=== PATIENT | male | born 1955 | race Caucasian/White ===

== ENCOUNTER 2022-04-09 19:36 | Outpatient (CLI) | payer MEDICARE, BC, SELFPAY ==
--- OUTSIDE RECORDS SUMMARY | 2022-04-09 19:39 | XMS_ITS | Continuity of Care Document ---
:1955 Author Organization [facility] Address [address] [address] [place] [address] Phone Care Team Providers Name Role Phone Link Claudy BLUM Unavailable Unavailable Allergies, Adverse Reactions, Alerts Substance Reaction Status Criticality No Known allergies Medications Medication Instructions Dosage Effective Dates Status Comment s (start - stop) MiralaxBisacodylMagCit Colon Use as directed - Active Prep simvastatin 20 mg tablet take 1 tablet 20 MG - Activ e (20MG) by oral route every day in the evening lisinopril 10 mg tablet take 1 tablet 10 MG - Active (10MG) by oral route every day prednisone 5 mg tablet take 1 tablet 5 MG - Active (5MG) by oral route every day aspirin 81 mg tablet,delayed take 1 tablet 81 MG - A ctive release (81MG) by oral route every day Procedures Procedure Date Colonoscopy Flex; W/remov Les- Colonoscopy Flex; W/bx 1/mx Level Iv-surg Path Gross/micro Advance Directives Directive Yes / No Effective Date File Name No Information Encounters Encounter Practice Location Reason(s) Diagnoses Date Provider Provide rs Description For Visit Copied on [facility]counter [facility] No Information [facility] [address]. [place] [employer] [place], [address] [address], [address] [facility] [place], [place], [place], [address], [id number], [place], [place], tel:[phone] , [place]. tel:[phone] KJMARTI Conde KJMARTI Polyp-intes/rect/ [facility] MD [place]. [facility], [facility] [address] [address] [place] [facility] [place], [place], [place] [facility] [address], [id number], [place], [place], tel: ulosis Of [phone] [id number] [place] [address]. [facility] tel: [phone] Family History Family Member Type Diagnosis Age At Onset No Information Payers Payer name Insurance type Covered alliance party ID Authorization(s ) No Information Social History Type Description Quantity Date Captured Comments Sex Male Smoking Status No Information Chief Complaint And Reason For Visit No Information Reason For Referral Reason For Referral No Information Plan Of Treatment Date Type Action Status No Information History Of Present Illness Encounter Date Complaint History Of Present I llness No Information Functional Status Date Functional Assessment No Information Instructions Date Instruction Additional Informati on No Information Assessments Type Assessment Date No Information Patient Care Teams Name Effective Dates (start - stop) Status M embtanya No Information
--- NOTE | 2022-04-30 13:46 | W.PM.SLEEP ---
Sleep Study Details Details Interpreting Provider: Virgil Mccann MD Date of Sleep Study: 04/09/22 Sleep Study Details: STUDY TYPE:? Home ? BMI:? Not recorded ORDERING PROVIDER:? Ger INDICATION:? Concerns about sleep apnea ? SLEEP SUMMARY:? 411 monitored minutes RESPIRATORY SUMMARY:? AHI 18.4, supine 29.8, prone 12.2, left lateral 9.1, right lateral 4.6 Low oxygen 82 3.4% of study oxygen less than 90%, 0.1% of study oxygen less than 85% Snoring 1.1% PERIODIC LIMB MOVEMENTS OF SLEEP:? Not recorded CARDIAC:? 50-87, mean 58.8 IMPRESSION:? 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
== END 2022-04-09 19:37 | disposition home or self-care (01) ==
LOC: SLEEP 19:37
PROVIDERS: PCP Emergency Medicine; Visit Provider Emergency Medicine
DX: G47.33 Obstructive sleep apnea (adult) (pediatric) (principal)
CPT/HCPCS: 95806

== ENCOUNTER 2022-07-24 14:36 | Outpatient (CLI) | payer MEDICARE, BC, SELFPAY | END 2022-07-24 14:37 | disposition home or self-care (01) | PROVIDERS: PCP Emergency Medicine; Visit Provider Emergency Medicine | DX: R05.9 Cough, unspecified (principal); R05.3 Chronic cough | CPT/HCPCS: 86140; 86480 ==

== ENCOUNTER 2022-07-31 09:49 | Outpatient (CLI) | payer MEDICARE, BC, SELFPAY ==
--- NOTE | 2022-07-31 10:00 | CRLHL7_ITS ---
For Patients: As a result of the Century Cures Act, medical imaging exams and procedure reports are released immediately into your electronic medical record. You may view this report before your referring provider. If you have questions, please contact your health care provider. Indication: Chronic cough greater than 1 year Technique: Routine noncontrast CT chest Please note that all CT scans at this facility use dose modulation, iterative reconstruction, and/or weight-based dosing when appropriate to reduce radiation dose to as low as reasonably achievable. Comparison: Chest x-ray 02/04/2022 Findings: Pleural-based nodule right upper lobe measuring 4 millimeters, . Perifissural nodule left lower lobe measuring 3.6 millimeters, . No infiltrate or edema. No effusion or pneumothorax. Mild atelectasis right lung base. No pulmonary fibrosis. No adenopathy. Calcifications of the coronary arteries. Upper abdomen unremarkable. No fracture. Impression: No airspace disease or pulmonary fibrosis. Small bilateral pulmonary nodules. If the patient is a smoker recommend follow-up in 1 year. Please note that all CT scans at this facility use dose modulation, iterative reconstruction, and/or weight-based dosing when appropriate to reduce radiation dose to as low as reasonably achievable. Dictated by Markus Serna MD @ 07/31/2022 11:50:30 AM (Electronically Signed)
== END 2022-07-31 09:50 | disposition home or self-care (01) ==
PROVIDERS: PCP Emergency Medicine; Visit Provider Emergency Medicine
DX: R05.3 Chronic cough (principal); R91.8 Other nonspecific abnormal finding of lung field
CPT/HCPCS: 71250

== ENCOUNTER 2023-01-08 12:30 | Outpatient (CLI) | payer MEDICARE, BC, SELFPAY | END 2023-01-08 12:31 | disposition home or self-care (01) | LOC: LKVREF 12:31 | PROVIDERS: PCP Emergency Medicine; Visit Provider Emergency Medicine | DX: Z00.00 Encounter for general adult medical examination without abnormal findings (principal); E78.5 Hyperlipidemia, unspecified; I10 Essential (primary) hypertension; Z12.5 Encounter for screening for malignant neoplasm of prostate | CPT/HCPCS: 80053; 80061; 84153 ==

== ENCOUNTER 2024-03-03 09:26 | Outpatient (CLI) | payer MEDICARE, BC, SELFPAY ==
--- OUTSIDE RECORDS SUMMARY | 2024-03-06 10:24 | XMS_ITS | Continuity of Care Document ---
Author Name [facility] Organization [facility] Care Team Providers Care Quality Project Manager Name Role Phone [facility] Unavailable Unavailable Problems Combined list of problems from Department of Defense and Veterans Affairs facilities. It does not include entries that were removed or entered in error. Problem Status Onset Date Problem Type Date of Resolution Comments Source Chronic cough Active Condition [facility] Colonoscopy normal Active Condition S ep 2018 Entered By: GREGORY JERONIMO Comment: 2017 [facility] GERD - Gastro-Esophageal Reflux Disease ([facility] [id number]) Active Condition [facility] Hearing loss Active Condition [facility] HTN - Hypertension ([facility] [id number]) Active Condition [facility] Hypercalcemia Active Condition [facility] Hyperlipidemia ([facility] [id number]) Active Condition [facility] Osteopenia Active Condition Jan 21 Entered By: GREGORY JERONIMO Comment: 2018 DEXA [facility] Overweight Active Condition [facility] Primary hyperparathyroidism Active Condition [facility] Sleep apnea Active Condition Jul 19, 2022 Entered By: GREGORY JERONIMO Comment: moderate obstructive sleep apnea [place] [facility] [place] Entered By: YARITZA ESCUDERO Comment: Neg sleep study at [place] 12-23 [facility] Snoring Active Condition [facility] SR - Schatzki ring Active Condition S ep 2018 Entered By: GREGORY JERONIMO Comment: Hx episodic EGD dilatations [facility] Diagnosis: ICD-10-CM H90.3 Sensorineural hearing loss, bilateral Active Diagnosis [facility] Diagnosis: ICD-10-CM E78.5 Hyperlipidemia, unspecified Active Diagnosis [facility] Diagnosis: ICD-10-CM R05.3 Chronic cough Active Diagnosis [facility] Diagnosis: ICD-10-CM G47.33 Obstructive sleep apnea (adult) (pediatric) Active Diagnosis [facility] Diagnosis: ICD-10-CM R06.83 Snoring Active Diagnosis [facility] Diagnosis: ICD-10-CM Z46.1 Encounter for fitting and adjustment of hearing aid Active Diagnosis [facility] Medications Combined list of outpatient medications from Department of Defense and Veterans Affairs facilities.Medications provided include 1) outpatient medications from the last 15 months, and 2) patient-reported medications. Medication Details Route Status Patient Instructions Prescription Expires Prescription Number Last Dispense Date Ordering Provider Order Date Order Qty Source AMLODIPINE BESYLATE 2.5MG TAB TAKE ONE TABLET BY MOUTH EVERY DAY FOR BLOOD PRESSURE ORAL ACTIVE 02/01/2025 [id number] STEPHANIE JERONIMO 2023 90 [facility] atorvastati n (U/D) 40 MG ORAL TAB TAKE ONE TABLET BY MOUTH AT BEDTIME - CHOLESTE ROL MEDICATI ON Active 03/23/2024 [id number] 4 YARITZA ESCUDERO [address] [facility] atorvastati n (U/D) 40 MG ORAL TAB TAKE ONE TABLET BY MOUTH AT BEDTIME - CHOLESTE ROL MEDICATI ON Active 03/23/2024 [id number] 3 YARITZA ESCUDERO [address] [facility] atorvastati n (U/D) 40 MG ORAL TAB TAKE ONE TABLET BY MOUTH AT BEDTIME - CHOLESTE ROL MEDICATI ON Discont inued 02/26/2023 [id number] 3 STEPHANIE JERONIMO [address] [facility] ATORVASTATI N CA 40MG TAB TAKE ONE TABLET BY MOUTH AT BEDTIME - CHOLESTE ROL MEDICATI ON ORAL SUSPEND ED 02/01/2025 [id number] 4 STEPHANIE JERONIMO 2023 90 [facility] ATORVASTATI N CA 40MG TAB TAKE ONE TABLET BY MOUTH AT BEDTIME - CHOLESTE ROL MEDICATI ON ORAL DISCONT INUED 03/23/2024 [id number] 4 ERIN ESCUDERO 2022 90 [facility] ATORVASTATI N CA 40MG TAB TAKE ONE TABLET BY MOUTH AT BEDTIME - CHOLESTE ROL MEDICATI ON ORAL DISCONT INUED 02/26/2023 [id number] 3 STEPHANIE JERONIMO 2021 90 [facility] losartan (U/D) 25 MG ORAL TAB TAKE ONE TABLET BY MOUTH EVERY DAY FOR BLOOD PRESSURE Active 03/23/2024 [id number] 4 YARITZA ESCUDERO [address] [facility] losartan (U/D) 25 MG ORAL TAB TAKE ONE TABLET BY MOUTH EVERY DAY FOR BLOOD PRESSURE Active 03/23/2024 [id number] 3 YARITZA ESCUDERO [address] [facility] losartan (U/D) 25 MG ORAL TAB TAKE ONE TABLET BY MOUTH EVERY DAY FOR BLOOD PRESSURE Discont inued 02/26/2023 [id number] 3 STEPHANIE JERONIMO [address] [facility] LOSARTAN 25MG TAB TAKE ONE TABLET BY MOUTH EVERY DAY FOR BLOOD PRESSURE ORAL DISCONT INUED BY PROVIDE R 03/23/2024 [id number] 4 ERIN ESCUDERO 2022 90 [facility] LOSARTAN 25MG TAB TAKE ONE TABLET BY MOUTH EVERY DAY FOR BLOOD PRESSURE ORAL DISCONT INUED 02/26/2023 [id number] 3 STEPHANIE JERONIMO 2021 90 [facility] MOMETASONE FUROATE 100MCG/ACTU AT [facility],ORAL,1 20D,13GM INHALE 1 PUFF BY MOUTH TWICE A DAY FOR ASTHMA RESPIR ATORY (INHAL ATION) ACTIVE 02/01/2025 [id number] 4 STEPHANIE JERONIMO 2023 1 [facility] Prednisone (5-Day Burst) Tablet 20 mg Oral TAKE ONE TABLET BY MOUTH EVERY DAY NEEDED FOR 5 DAYS FOR EPISODES WHEEZING /SHORTNE SS OF BREATH/C ONGESTIO N Active 08/26/2024 [id number] 4 YARITZA ESCUDERO [address] [facility] Prednisone (5-Day Burst) Tablet 20 mg Oral TAKE ONE TABLET BY MOUTH EVERY DAY NEEDED FOR 5 DAYS FOR EPISODES WHEEZING /SHORTNE SS OF BREATH/C ONGESTIO N Active 08/26/2024 [id number] 4 YARITZA ESCUDERO 2023 5 [facility] Prednisone (5-Day Burst) Tablet 20 mg Oral TAKE ONE TABLET BY MOUTH EVERY DAY NEEDED FOR 5 DAYS FOR EPISODES WHEEZING /SHORTNE SS OF BREATH/C ONGESTIO N Discont inued 03/23/2024 [id number] 4 YARITZA ESCUDERO A 2023 5 [place] [facility] Prednisone (5-Day Burst) Tablet 20 mg Oral TAKE ONE TABLET BY MOUTH EVERY DAY NEEDED FOR 5 DAYS FOR EPISODES WHEEZING /SHORTNE SS OF BREATH/C ONGESTIO N Active 03/23/2024 [id number] 3 YARITZA ESCUDERO 2022 5 [place] [facility] Prednisone (5-Day Burst) Tablet 20 mg Oral TAKE ONE TABLET BY MOUTH EVERY DAY NEEDED FOR 5 DAYS FOR EPISODES WHEEZING /SHORTNE SS OF BREATH/C ONGESTIO N Discont inued 12/05/2023 [id number] 3 NICOLE CROWDER 2022 5 [place] [facility] PREDNISONE 20MG TAB TAKE ONE TABLET BY MOUTH EVERY DAY NEEDED FOR 5 DAYS FOR EPISODES WHEEZING /SHORTNE SS OF BREATH/C ONGESTIO N ORAL ACTIVE 02/01/2025 [id number] 4 STEPHANIE JERONIMO 2023 5 [facility] PREDNISONE 20MG TAB TAKE ONE TABLET BY MOUTH EVERY DAY NEEDED FOR 5 DAYS FOR EPISODES WHEEZING /SHORTNE SS OF BREATH/C ONGESTIO N ORAL DISCONT INUED 11/13/2024 [id number] 4 STEPHANIE JERONIMO 2023 5 [facility] PREDNISONE 20MG TAB TAKE ONE TABLET BY MOUTH EVERY DAY NEEDED FOR 5 DAYS FOR EPISODES WHEEZING /SHORTNE SS OF BREATH/C ONGESTIO N ORAL DISCONT INUED 08/26/2024 [id number] 4 ERIN ESCUDERO 2023 5 [facility] PREDNISONE 20MG TAB TAKE ONE TABLET BY MOUTH EVERY DAY NEEDED FOR 5 DAYS FOR EPISODES WHEEZING /SHORTNE SS OF BREATH/C ONGESTIO N ORAL DISCONT INUED 03/23/2024 [id number] 4 ERIN ESCUDERO A 2022 5 [facility] PREDNISONE 20MG TAB TAKE ONE TABLET BY MOUTH EVERY DAY NEEDED FOR 5 DAYS FOR EPISODES WHEEZING /SHORTNE SS OF BREATH/C ONGESTIO N ORAL DISCONT INUED 12/05/2023 [id number] 3 STEPHANIE JERONIMO 2022 5 [facility] Allergies, Adverse Reactions, Alerts Combined list of allergies from Department of Defense and Veterans Affairs facilities. It does not include entries that were removed or entered in error. Substance Category Reaction Severity Reaction type Status Date Reported Comments Source LISINOPRIL Propensity to adverse reactions to drug (finding) Cough MODERATE active 4 [facility] Immunizations Combined list of available immunizations from the Department of [facility] and Veterans Affairs facilities. 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 Status Comments Source COVID-19 ([employer]), MRNA, LNP-S, PF, SAIDA-SUCROSE, 30 MCG/0.3 ML (AGES 12+ YEARS) 2023 309 complet ed [facility] INFLUENZA, ADJUVANTED, TRIVALENT, PF 2023 168 complet ed [facility] COVID-19 (PFIZER), MRNA, LNP-S, PF, SAIDA-SUCROSE, 30 MCG/0.3 ML (AGES 12+ YEARS) 2022 309 complet ed [facility] INFLUENZA VACCINE, QUADRIVALENT, ADJUVANTED 2022 205 complet ed [facility] INFLUENZA VACCINE, QUADRIVALENT, ADJUVANTED 2021 205 complet ed [facility] COVID-19, MRNA, LNP-S, BIVALENT BOOSTER, PF, 30 MCG/0.3 ML DOSE 1 2021 300 complet ed PFR; [id number]; 3 [facility] COVID-19 (PFIZER), MRNA, LNP-S, PF, SAIDA-SUCROSE, 30 MCG/0.3 ML (AGES 12+ YEARS) 2021 309 complet ed [facility] COVID-19 ([employer]), MRNA, LNP-S, PF, 30 MCG/0.3 ML DOSE, SAIDA-SUCROSE (AGES 12+ YEARS) 4 2021 217 complet ed PFR; [id number]; 2 [facility] PNEUMOCOCCAL CONJUGATE PCV 13 2021 133 complet ed [facility] INFLUENZA, UNSPECIFIED FORMULATION 2020 88 complet ed [facility] COVID-19 (PFIZER), MRNA, LNP-S, PF, 30 MCG/0.3 ML DOSE 3 2020 208 complet ed [facility] INFLUENZA, HIGH-DOSE, QUADRIVALENT 2020 197 complet ed [facility] COVID-19 (PFIZER), MRNA, LNP-S, PF, 30 MCG/0.3 ML DOSE 2 2020 208 complet ed PFR; [id number]; 1 [facility] COVID-19 (PFIZER), MRNA, LNP-S, PF, SAIDA-SUCROSE, 30 MCG/0.3 ML (AGES 12+ YEARS) 2020 309 complet ed [facility] COVID-19 (PFIZER), MRNA, LNP-S, PF, 30 MCG/0.3 ML DOSE 1 2020 208 complet ed PFR; [id number]; 1 [facility] COVID-19 (PFIZER), MRNA, LNP-S, PF, SAIDA-SUCROSE, 30 MCG/0.3 ML (AGES 12+ YEARS) 2020 309 complet ed [facility] PNEUMOCOCCAL POLYSACCHARID E PPV23 2020 33 complet ed merck [id number] 2 [facility] ZOSTER RECOMBINANT 2 2020 187 complet ed [facility] ZOSTER RECOMBINANT 1 2019 187 complet ed [facility] INFLUENZA, UNSPECIFIED FORMULATION 2019 88 complet ed [facility] PNEUMOCOCCAL CONJUGATE PCV 13 2019 133 complet ed [facility] PNEUMOCOCCAL CONJUGATE PCV 13 2018 133 complet ed [facility] TDAP 2018 115 complet ed [facility] INFLUENZA, INJECTABLE, QUADRIVALENT, PRESERVATIVE FREE 2017 150 complet ed [facility] TDAP 2015 115 complet ed [facility] ZOSTER LIVE 2015 121 complet ed [facility] Results Combined list of recent chemistry, hematology and other laboratory results from Department of Defense and Veterans Affairs, ranging from 15 months to all on record, depending upon the facility. Order Name Results Value Reference Range Date Interpretation Specimen Comments Source CBC LEUKOCYTES [#/VOLUME] IN BLOOD BY AUTOMATED COUNT 5.3 4.0 - 11.0 01/31 Specimen Type: BLOOD No comment entered. Ordering Provider: JUDY JERONIMO Report Released Date/Time: Jan 04, 2024 12:48 PM Reporting Lab: [facility] [address] Performing Lab: [facility] [address] [facility] CBC ERYTHROCYTE S [#/VOLUME] IN BLOOD BY AUTOMATED COUNT 4.87 4.60 - 6.20 01/31 Specimen Type: BLOOD No comment entered. Ordering Provider: JUDY JERONIMO Report Released Date/Time: Jan 04, 2024 12:48 PM Reporting Lab: [facility] [address] Performing Lab: [facility] [address] [facility] CBC HEMOGLOBIN [MASS/VOLUM E] IN BLOOD 14.9 g/dL 13.5 - 17.9 01/31 Specimen Type: BLOOD No comment entered. Ordering Provider: JUDY JERONIMO Report Released Date/Time: Jan 04, 2024 12:48 PM Reporting Lab: [facility] [address] Performing Lab: [facility] [address] [facility] CBC HEMATOCRIT [VOLUME FRACTION] OF BLOOD BY AUTOMATED COUNT 44.2 41.0 - 54.0 01/31 Specimen Type: BLOOD No comment entered. Ordering Provider: JUDY JERONIMO Report Released Date/Time: Jan 04, 2024 12:48 PM Reporting Lab: [facility] [address] Performing Lab: [facility] [address] [place] [facility] CBC MCV [ENTITIC VOLUME] BY AUTOMATED COUNT 90.8 fL 80.0 - 100.0 01/31 Specimen Type: BLOOD No comment entered. Ordering Provider: JUDY JERONIMO Report Released Date/Time: Jan 04, 2024 12:48 PM Reporting Lab: [facility] [address] Performing Lab: [facility] [address] [place] [facility] CBC MCH [ENTITIC MASS] BY AUTOMATED COUNT 30.6 pg 27.0 - 33.0 01/31 Specimen Type: BLOOD No comment entered. Ordering Provider: JUDY JERONIMO Report Released Date/Time: Jan 04, 2024 12:48 PM Reporting Lab: [facility] [address] Performing Lab: [facility] [address] [place] [facility] CBC MCHC [MASS/VOLUM E] BY AUTOMATED COUNT 33.7 g/dL 32.0 - 37.5 01/31 Specimen Type: BLOOD No comment entered. Ordering Provider: JUDY JERONIMO Report Released Date/Time: Jan 04, 2024 12:48 PM Reporting Lab: [facility] [address] Performing Lab: [facility] [address] [place] [facility] CBC PLATELETS [#/VOLUME] IN BLOOD BY AUTOMATED COUNT 228 150 - 400 01/31 Specimen Type: BLOOD No comment entered. Ordering Provider: JUDY JERONIMO Report Released Date/Time: Jan 04, 2024 12:48 PM Reporting Lab: [facility] [address] Performing Lab: [facility] [address] [place] [facility] CBC PLATELET MEAN VOLUME [ENTITIC VOLUME] IN BLOOD BY AUTOMATED COUNT 10.5 fL 9.1 - 13.0 01/31 Specimen Type: BLOOD No comment entered. Ordering Provider: JUDY JERONIMO Report Released Date/Time: Jan 04, 2024 12:48 PM Reporting Lab: [facility] [address] Performing Lab: [facility] [address] [place] [facility] CBC ERYTHROCYTE DISTRIBUTIO N WIDTH [RATIO] BY AUTOMATED COUNT 14.2 11.5 - 14.5 01/31 Specimen Type: BLOOD No comment entered. Ordering Provider: JUDY JERONIMO Report Released Date/Time: Jan 04, 2024 12:48 PM Reporting Lab: [facility] [address] Performing Lab: [facility] [address] [place] [facility] COMPREHEN SIVE METABOLIC PANEL+MG CREATININE [MASS/VOLUM E] IN SERUM OR PLASMA 1.0 mg/dL 0.7 - 1.2 01/31 Specimen Type: PLASMA No comment entered. Ordering Provider: JUDY JERONIMO Report Released Date/Time: Jan 04, 2024 12:48 PM Reporting Lab: [facility] [address] Performing Lab: [facility] [address] [place] [facility] COMPREHEN SIVE METABOLIC PANEL+MG UREA NITROGEN [MASS/VOLUM E] IN SERUM OR PLASMA 19 mg/dL 8 - 26 01/31 Specimen Type: PLASMA No comment entered. Ordering Provider: JUDY JERONIMO Report Released Date/Time: Jan 04, 2024 12:48 PM Reporting Lab: [facility] [address] Performing Lab: [facility] [address] [place] [facility] COMPREHEN SIVE METABOLIC PANEL+MG GLUCOSE [MASS/VOLUM E] IN SERUM OR PLASMA 91 mg/dL 70 - 100 01/31 Specimen Type: PLASMA No comment entered. Ordering Provider: JUDY JERONIMO Report Released Date/Time: Jan 04, 2024 12:48 PM Reporting Lab: [facility] [address] Performing Lab: [facility] [address] [place] [facility] COMPREHEN SIVE METABOLIC PANEL+MG SODIUM [MOLES/VOLU ME] IN SERUM OR PLASMA 141 mmol/L 136 - 145 01/31 Specimen Type: PLASMA No comment entered. Ordering Provider: JUDY JERONIMO Report Released Date/Time: Jan 04, 2024 12:48 PM Reporting Lab: [facility] [address] Performing Lab: [facility] [address] [place] [facility] COMPREHEN SIVE METABOLIC PANEL+MG POTASSIUM [MOLES/VOLU ME] IN SERUM OR PLASMA 3.9 mmol/L 3.5 - 5.1 01/31 Specimen Type: PLASMA No comment entered. Ordering Provider: JUDY JERONIMO Report Released Date/Time: Jan 04, 2024 12:48 PM Reporting Lab: [facility] [address] Performing Lab: [facility] [address] [place] [facility] COMPREHEN SIVE METABOLIC PANEL+MG CHLORIDE [MOLES/VOLU ME] IN SERUM OR PLASMA 107 mmol/L 98 - 107 01/31 Specimen Type: PLASMA No comment entered. Ordering Provider: JUDY JERONIMO Report Released Date/Time: Jan 04, 2024 12:48 PM Reporting Lab: [facility] [address] Performing Lab: [facility] [address] [place] [facility] COMPREHEN SIVE METABOLIC PANEL+MG CARBON DIOXIDE, TOTAL [MOLES/VOLU ME] IN SERUM OR PLASMA 30 mmol/L 22 - 29 01/31 H Specimen Type: PLASMA No comment entered. Ordering Provider: JUDY JERONIMO Report Released Date/Time: Jan 04, 2024 12:48 PM Reporting Lab: [facility] [address] Performing Lab: [facility] [address] [place] [facility] COMPREHEN SIVE METABOLIC PANEL+MG CALCIUM [MASS/VOLUM E] IN SERUM OR PLASMA 8.9 mg/dL 8.4 - 10.2 01/31 Specimen Type: PLASMA No comment entered. Ordering Provider: JUDY JERONIMO Report Released Date/Time: Jan 04, 2024 12:48 PM Reporting Lab: [facility] [address] Performing Lab: [facility] [address] [place] [facility] COMPREHEN SIVE METABOLIC PANEL+MG PROTEIN [MASS/VOLUM E] IN SERUM OR PLASMA 6.4 g/dL 6.4 - 8.3 01/31 Specimen Type: PLASMA No comment entered. Ordering Provider: JUDY JERONIMO Report Released Date/Time: Jan 04, 2024 12:48 PM Reporting Lab: [facility] [address] Performing Lab: [facility] [address] [place] [facility] COMPREHEN SIVE METABOLIC PANEL+MG ALBUMIN [MASS/VOLUM E] IN SERUM OR PLASMA 4.1 g/dL 3.5 - 5.2 01/31 Specimen Type: PLASMA No comment entered. Ordering Provider: JUDY JERONIMO Report Released Date/Time: Jan 04, 2024 12:48 PM Reporting Lab: [facility] [address] Performing Lab: [facility] [address] [facility] COMPREHEN SIVE METABOLIC PANEL+MG BILIRUBIN.T OTAL [MASS/VOLUM E] IN SERUM OR PLASMA 1.2 mg/dL 0.2 - 1.2 01/31 Specimen Type: PLASMA No comment entered. Ordering Provider: JUDY JERONIMO Report Released Date/Time: Jan 04, 2024 12:48 PM Reporting Lab: [facility] [address] Performing Lab: [facility] [address] [facility] COMPREHEN SIVE METABOLIC PANEL+MG MAGNESIUM [MASS/VOLUM E] IN SERUM OR PLASMA 2.1 mg/dL 1.6 - 2.6 01/31 Specimen Type: PLASMA No comment entered. Ordering Provider: JUDY JERONIMO Report Released Date/Time: Jan 04, 2024 12:48 PM Reporting Lab: [facility] [address] Performing Lab: [facility] [address] [place] [facility] COMPREHEN SIVE METABOLIC PANEL+MG ANION GAP IN SERUM OR PLASMA 4 mmol/L 5 - 15 01/31 L Specimen Type: PLASMA No comment entered. Ordering Provider: JUDY JERONIMO Report Released Date/Time: Jan 04, 2024 12:48 PM Reporting Lab: [facility] [address] Performing Lab: [facility] [address] [place] [facility] COMPREHEN SIVE METABOLIC PANEL+MG ALKALINE PHOSPHATASE [ENZYMATIC ACTIVITY/VO LUME] IN SERUM OR PLASMA 65 U/L 40 - 150 01/31 Specimen Type: PLASMA No comment entered. Ordering Provider: JUDY JERONIMO Report Released Date/Time: Jan 04, 2024 12:48 PM Reporting Lab: [facility] [address] Performing Lab: [facility] [address] [place] [facility] COMPREHEN SIVE METABOLIC PANEL+MG ALANINE AMINOTRANSF ERASE [ENZYMATIC ACTIVITY/VO LUME] IN SERUM OR PLASMA 20 U/L <44 - 44 01/31 Specimen Type: PLASMA No comment entered. Ordering Provider: JUDY JERONIMO Report Released Date/Time: Jan 04, 2024 12:48 PM Reporting Lab: [facility] [address] Performing Lab: [facility] [address] [place] [facility] COMPREHEN SIVE METABOLIC PANEL+MG ASPARTATE AMINOTRANSF ERASE [ENZYMATIC ACTIVITY/VO LUME] IN SERUM OR PLASMA 24 U/L 11 - 34 01/31 Specimen Type: PLASMA No comment entered. Ordering Provider: JUDY JERONIMO Report Released Date/Time: Jan 04, 2024 12:48 PM Reporting Lab: [facility] [address] Performing Lab: [facility] [address] [place] [facility] COMPREHEN SIVE METABOLIC PANEL+MG GLOMERULAR FILTRATION RATE/1.73 SQ M.PREDICTED [VOLUME RATE/AREA] IN SERUM, PLASMA OR BLOOD BY CREATININE- BASED FORMULA (CKD-EPI 2020) 81 60 01/31 Specimen Type: PLASMA No comment entered. Ordering Provider: JUDY JERONIMO Report Released Date/Time: Jan 04, 2024 12:48 PM Reporting Lab: [facility] [address] Performing Lab: [facility] [address] [place] [facility] LIPID PANEL,NON -FASTING CHOLESTEROL [MASS/VOLUM E] IN SERUM OR PLASMA 107 mg/dL <199 - 199 01/31 Specimen Type: PLASMA No comment entered. Ordering Provider: JUDY JERONIMO Report Released Date/Time: Jan 04, 2024 12:48 PM Reporting Lab: [facility] [address] Performing Lab: [facility] [address] [place] [facility] LIPID PANEL,NON -FASTING CHOLESTEROL IN HDL [MASS/VOLUM E] IN SERUM OR PLASMA 57 mg/dL 40 01/31 Specimen Type: PLASMA No comment entered. Ordering Provider: JUDY JERONIMO Report Released Date/Time: Jan 04, 2024 12:48 PM Reporting Lab: [facility] [phone] Performing Lab: [facility] [address] [place] [facility] LIPID PANEL,NON -FASTING CHOLESTEROL IN LDL [MASS/VOLUM E] IN SERUM OR PLASMA BY CALCULATION 39 mg/dL <99 - 99 01/31 Specimen Type: PLASMA No comment entered. Ordering Provider: JUDY JERONIMO Report Released Date/Time: Jan 04, 2024 12:48 PM Reporting Lab: [facility] [address] Performing Lab: [facility] [address] [place] [facility] LIPID PANEL,NON -FASTING CHOLESTEROL IN VLDL [MASS/VOLUM E] IN SERUM OR PLASMA BY CALCULATION 11 mg/dL <29 - 29 01/31 Specimen Type: PLASMA No comment entered. Ordering Provider: JUDY JERONIMO Report Released Date/Time: Jan 04, 2024 12:48 PM Reporting Lab: [facility] [address] Performing Lab: [facility] [address] [place] [facility] LIPID PANEL,NON -FASTING CHOLESTEROL NON HDL [MASS/VOLUM E] IN SERUM OR PLASMA 50 mg/dL <129 - 129 01/31 Specimen Type: PLASMA No comment entered. Ordering Provider: JUDY JERONIMO Report Released Date/Time: Jan 04, 2024 12:48 PM Reporting Lab: [facility] [address] Performing Lab: [facility] [address] [place] [facility] LIPID PANEL,NON -FASTING TRIGLYCERID E [MASS/VOLUM E] IN SERUM OR PLASMA 53 mg/dL <149 - 149 01/31 Specimen Type: PLASMA No comment entered. Ordering Provider: JUDY JERONIMO Report Released Date/Time: Jan 04, 2024 12:48 PM Reporting Lab: [facility] [id number] Performing Lab: [facility] [phone] [place] [facility] TSH W/REFLEX TO FREE T4 THYROTROPIN [UNITS/VOLU ME] IN SERUM OR PLASMA 2.55 u[IU]/ mL 0.35 - 4.94 01/31 Specimen Type: PLASMA No comment entered. Ordering Provider: JUDY JERONIMO Report Released Date/Time: Jan 04, 2024 12:48 PM Reporting Lab: [facility] [id number] Performing Lab: [facility] [phone] [place] [facility] HEMOGLOBI N A1C HEMOGLOBIN A1C/HEMOGLO BIN.TOTAL IN BLOOD 5.4 4.0 - 6.0 01/31 Specimen Type: BLOOD Comment: Values obtained from A1C measurement s can vary. For typical A1C assays, a reported value of 7.0 could actually be between 6.7 and 7.3 if measured by a reference method. A reported value of 9.0 could actually be between 8.7 and 9.3. Ref: http://www. ngsp.org/[place] Pdata.asp Ordering Provider: JUDY JERONIMO Report Released Date/Time: Jan 04, 2024 12:48 PM Reporting Lab: [facility] [address] Performing Lab: [facility] [address] [place] [facility] TSH W/REFLEX TO FREE T4 THYROTROPIN [UNITS/VOLU ME] IN SERUM OR PLASMA 2.48 u[IU]/ mL 0.35 - 4.94 03/23 Specimen Type: PLASMA No comment entered. Ordering Provider: JUDY JERONIMO Report Released Date/Time: Feb 25, 2022 08:33 AM Reporting Lab: [facility] [address] Performing Lab: [facility] [address] [place] [facility] PSA PROSTATE SPECIFIC AG [MASS/VOLUM E] IN SERUM OR PLASMA 0.50 ng/mL <4.00 - 4.00 03/23 Specimen Type: SERUM No comment entered. Ordering Provider: JUDY JERONIMO Report Released Date/Time: Feb 25, 2022 08:33 AM Reporting Lab: [facility] [address] Performing Lab: [facility] [address] [place] [facility] COMPREHEN SIVE METABOLIC PANEL+MG CREATININE [MASS/VOLUM E] IN SERUM OR PLASMA 1.0 mg/dL 0.7 - 1.2 03/23 Specimen Type: PLASMA No comment entered. Ordering Provider: JUDY JERONIMO Report Released Date/Time: Feb 25, 2022 08:33 AM Reporting Lab: [facility] [address] Performing Lab: [facility] [address] [place] [facility] COMPREHEN SIVE METABOLIC PANEL+MG UREA NITROGEN [MASS/VOLUM E] IN SERUM OR PLASMA 15 mg/dL 8 - 26 03/23 Specimen Type: PLASMA No comment entered. Ordering Provider: JUDY JERONIMO Report Released Date/Time: Feb 25, 2022 08:33 AM Reporting Lab: [facility] [address] Performing Lab: [facility] [address] [place] [facility] COMPREHEN SIVE METABOLIC PANEL+MG GLUCOSE [MASS/VOLUM E] IN SERUM OR PLASMA 87 mg/dL 70 - 100 03/23 Specimen Type: PLASMA No comment entered. Ordering Provider: JUDY JERONIMO Report Released Date/Time: Feb 25, 2022 08:33 AM Reporting Lab: [facility] [address] Performing Lab: [facility] [address] [place] [facility] COMPREHEN SIVE METABOLIC PANEL+MG SODIUM [MOLES/VOLU ME] IN SERUM OR PLASMA 140 mmol/L 136 - 145 03/23 Specimen Type: PLASMA No comment entered. Ordering Provider: JUDY JERONIMO Report Released Date/Time: Feb 25, 2022 08:33 AM Reporting Lab: [facility] [address] Performing Lab: [facility] [address] [place] [facility] COMPREHEN SIVE METABOLIC PANEL+MG POTASSIUM [MOLES/VOLU ME] IN SERUM OR PLASMA 4.0 mmol/L 3.5 - 5.1 03/23 Specimen Type: PLASMA No comment entered. Ordering Provider: JUDY JERONIMO Report Released Date/Time: Feb 25, 2022 08:33 AM Reporting Lab: [facility] [address] Performing Lab: [facility] [address] [place] [facility] COMPREHEN SIVE METABOLIC PANEL+MG CHLORIDE [MOLES/VOLU ME] IN SERUM OR PLASMA 105 mmol/L 98 - 107 03/23 Specimen Type: PLASMA No comment entered. Ordering Provider: JUDY JERONIMO Report Released Date/Time: Feb 25, 2022 08:33 AM Reporting Lab: [facility] [address] Performing Lab: [facility] [address] [place] [facility] COMPREHEN SIVE METABOLIC PANEL+MG CARBON DIOXIDE, TOTAL [MOLES/VOLU ME] IN SERUM OR PLASMA 28 mmol/L 22 - 29 03/23 Specimen Type: PLASMA No comment entered. Ordering Provider: JUDY JERONIMO Report Released Date/Time: Feb 25, 2022 08:33 AM Reporting Lab: [facility] [address] Performing Lab: [facility] [address] [place] [facility] COMPREHEN SIVE METABOLIC PANEL+MG CALCIUM [MASS/VOLUM E] IN SERUM OR PLASMA 9.0 mg/dL 8.4 - 10.2 03/23 Specimen Type: PLASMA No comment entered. Ordering Provider: JUDY JERONIMO Report Released Date/Time: Feb 25, 2022 08:33 AM Reporting Lab: [facility] [address] Performing Lab: [facility] [address] [place] [facility] COMPREHEN SIVE METABOLIC PANEL+MG PROTEIN [MASS/VOLUM E] IN SERUM OR PLASMA 6.7 g/dL 6.0 - 8.3 03/23 Specimen Type: PLASMA No comment entered. Ordering Provider: JUDY JERONIMO Report Released Date/Time: Feb 25, 2022 08:33 AM Reporting Lab: [facility] [address] Performing Lab: [facility] [address] [place] [facility] COMPREHEN SIVE METABOLIC PANEL+MG ALBUMIN [MASS/VOLUM E] IN SERUM OR PLASMA 4.1 g/dL 3.5 - 5.2 03/23 Specimen Type: PLASMA No comment entered. Ordering Provider: JUDY JERONIMO Report Released Date/Time: Feb 25, 2022 08:33 AM Reporting Lab: [facility] [address] Performing Lab: [facility] [address] [place] [facility] COMPREHEN SIVE METABOLIC PANEL+MG BILIRUBIN.T OTAL [MASS/VOLUM E] IN SERUM OR PLASMA 0.8 mg/dL 0.2 - 1.2 03/23 Specimen Type: PLASMA No comment entered. Ordering Provider: JUDY JERONIMO Report Released Date/Time: Feb 25, 2022 08:33 AM Reporting Lab: [facility] [address] Performing Lab: [facility] [address] [place] [facility] COMPREHEN SIVE METABOLIC PANEL+MG MAGNESIUM [MASS/VOLUM E] IN SERUM OR PLASMA 2.0 mg/dL 1.6 - 2.6 03/23 Specimen Type: PLASMA No comment entered. Ordering Provider: JUDY JERONIMO Report Released Date/Time: Feb 25, 2022 08:33 AM Reporting Lab: [facility] [address] Performing Lab: [facility] [address] [place] [facility] COMPREHEN SIVE METABOLIC PANEL+MG ANION GAP IN SERUM OR PLASMA 7 mmol/L 5 - 15 03/23 Specimen Type: PLASMA No comment entered. Ordering Provider: JUDY JERONIMO Report Released Date/Time: Feb 25, 2022 08:33 AM Reporting Lab: [facility] [address] Performing Lab: [facility] [address] [place] [facility] COMPREHEN SIVE METABOLIC PANEL+MG ALKALINE PHOSPHATASE [ENZYMATIC ACTIVITY/VO LUME] IN SERUM OR PLASMA 73 U/L 40 - 150 03/23 Specimen Type: PLASMA No comment entered. Ordering Provider: JUDY JERONIMO Report Released Date/Time: Feb 25, 2022 08:33 AM Reporting Lab: [facility] [address] Performing Lab: [facility] [address] [place] [facility] COMPREHEN SIVE METABOLIC PANEL+MG ALANINE AMINOTRANSF ERASE [ENZYMATIC ACTIVITY/VO LUME] IN SERUM OR PLASMA 22 U/L <55 - 55 03/23 Specimen Type: PLASMA No comment entered. Ordering Provider: JUDY JERONIMO Report Released Date/Time: Feb 25, 2022 08:33 AM Reporting Lab: [facility] [address] Performing Lab: [facility] [address] [place] [facility] COMPREHEN SIVE METABOLIC PANEL+MG ASPARTATE AMINOTRANSF ERASE [ENZYMATIC ACTIVITY/VO LUME] IN SERUM OR PLASMA 19 U/L <34 - 34 03/23 Specimen Type: PLASMA No comment entered. Ordering Provider: JUDY JERONIMO Report Released Date/Time: Feb 25, 2022 08:33 AM Reporting Lab: [facility] [address] Performing Lab: [facility] [address] [place] [facility] COMPREHEN SIVE METABOLIC PANEL+MG GLOMERULAR FILTRATION RATE/1.73 SQ M.PREDICTED [VOLUME RATE/AREA] IN SERUM, PLASMA OR BLOOD BY CREATININE- BASED FORMULA (CKD-EPI 2020) 81 60 03/23 Specimen Type: PLASMA No comment entered. Ordering Provider: JUDY JERONIMO Report Released Date/Time: Feb 25, 2022 08:33 AM Reporting Lab: [facility] [address] Performing Lab: [facility] [address] [place] [facility] LIPID PANEL,NON -FASTING CHOLESTEROL [MASS/VOLUM E] IN SERUM OR PLASMA 126 mg/dL <199 - 199 03/23 Specimen Type: PLASMA No comment entered. Ordering Provider: JUDY JERONIMO Report Released Date/Time: Feb 25, 2022 08:33 AM Reporting Lab: [facility] [address] Performing Lab: [facility] [address] [place] [facility] LIPID PANEL,NON -FASTING CHOLESTEROL IN HDL [MASS/VOLUM E] IN SERUM OR PLASMA 55 mg/dL 40 03/23 Specimen Type: PLASMA No comment entered. Ordering Provider: JUDY JERONIMO Report Released Date/Time: Feb 25, 2022 08:33 AM Reporting Lab: [facility] [address] Performing Lab: [facility] [address] [place] [facility] LIPID PANEL,NON -FASTING CHOLESTEROL IN LDL [MASS/VOLUM E] IN SERUM OR PLASMA BY CALCULATION 56 mg/dL <99 - 99 03/23 Specimen Type: PLASMA No comment entered. Ordering Provider: JUDY JERONIMO Report Released Date/Time: Feb 25, 2022 08:33 AM Reporting Lab: [facility] [address] Performing Lab: [facility] [address] [place] [facility] LIPID PANEL,NON -FASTING CHOLESTEROL IN VLDL [MASS/VOLUM E] IN SERUM OR PLASMA BY CALCULATION 15 mg/dL <29 - 29 03/23 Specimen Type: PLASMA No comment entered. Ordering Provider: JUDY JERONIMO Report Released Date/Time: Feb 25, 2022 08:33 AM Reporting Lab: [facility] [address] Performing Lab: [facility] [address] [place] [facility] LIPID PANEL,NON -FASTING CHOLESTEROL NON HDL [MASS/VOLUM E] IN SERUM OR PLASMA 71 mg/dL <129 - 129 03/23 Specimen Type: PLASMA No comment entered. Ordering Provider: JUDY JERONIMO Report Released Date/Time: Feb 25, 2022 08:33 AM Reporting Lab: [facility] [address] Performing Lab: [facility] [address] [facility] LIPID PANEL,NON -FASTING TRIGLYCERID E [MASS/VOLUM E] IN SERUM OR PLASMA 76 mg/dL <149 - 149 03/23 Specimen Type: PLASMA No comment entered. Ordering Provider: JUDY JERONIMO Report Released Date/Time: Feb 25, 2022 08:33 AM Reporting Lab: [facility] [address] Performing Lab: [facility] [address] [facility] PTH-N-TAC T PARATHYRIN. INTACT [MASS/VOLUM E] IN SERUM OR PLASMA 44.4 pg/mL 8.7 - 77.1 03/23 Specimen Type: PLASMA No comment entered. 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 Vital Sign Value Date Comments Source SYSTOLIC BLOOD PRESSURE 151 02/01/2024 09:45:35 [facility] DIASTOLIC BLOOD PRESSURE 74 02/01/2024 09:45:35 [facility] PULSE OXIMETRY 97 02/01/2024 09:45:35 [facility] WEIGHT 191.6 02/01/2024 09:45:35 [facility] BMI 25kg/m2 02/01/2024 09:45:35 [facility] PAIN 0 02/01/2024 09:45:35 [facility] TEMPERATURE 97 02/01/2024 09:45:35 [facility] PULSE 59 02/01/2024 09:45:35 [facility] RESPIRATION 16 02/01/2024 09:45:35 [facility] SYSTOLIC BLOOD PRESSURE 143 03/23/2023 08:10:39 [facility] DIASTOLIC BLOOD PRESSURE 77 03/23/2023 08:10:39 [facility] PULSE OXIMETRY 98% 03/23/2023 08:10:39 [facility] WEIGHT 194 03/23/2023 08:10:39 [place] BMI 26kg/m2 03/23/2023 08:10:39 [facility] PAIN 1 03/23/2023 08:10:39 [facility] HEIGHT 73 03/23/2023 08:10:39 [facility] TEMPER[facility] 97.4 03/23/2023 08:10:39 [facility] PULSE 71 03/23/2023 08:10:39 [facility] RESPIRATION 16 03/23/2023 08:10:39 [facility] Encounters Combined list of: 1) Encounters from Department of [facility] Affairs facilities going back up to thelast 18 months. 2) Encounters from the Department of Defense facilities going back up to 280 months. Location Location Details Encounter Type Encounter Number Reason For Visit Attending Provider ADM Date DC Date Status Disposition Source [facility] HEARING AID FITTING/CH ECKING [id number] Diagnos is: ICD-10- CM Z46.1 Encount er for fitting and adjustm ent of hearing aid<br/ > BAYLEE BOOKER 09/11 [facility] Outpatient Encounter [id number] 12/30 [facility] HEARING AID CHECK ONE EAR [id number] Diagnos is: ICD-10- CM Z46.1 Encount er for fitting and adjustm ent of hearing aid<br/ > JHONY,BAYLEE Abhijit 01/07 [facility] [place] [facility] Outpatient Encounter [id number] 01/27 [facility] [place] [facility] Outpatient Encounter [id number] 02/06 [facility] PT EDUCATION NOC INDIVID [id number] Diagnos is: ICD-10- CM G47.33 Obstruc tive sleep apnea (adult) (pediat melissa)
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
OSMIN WEEKS 03/04 [facility] Outpatient Encounter [id number] Diagnos is: ICD-10- CM G47.33 Obstruc tive sleep apnea (adult) (pediat melissa)
OSMIN WEEKS 03/17 [facility] [employer] ST[employer] UNATTENDED [id number] Diagnos is: ICD-10- CM R06.83 Snoring
Abhijit ESCOBAR 03/17 [facility] HC PRO PHONE CALL 5-10 MIN [id number] Diagnos is: ICD-10- CM G47.33 Obstruc tive sleep apnea (adult) (pediat melissa)
OSMIN WEEKS 03/20 [facility] OFFICE O/P EST MOD 30-39 MIN [id number] Diagnos is: ICD-10- CM R05.3 Chronic cough<b r/> MAY ESCUDERO Y A 03/23 [facility] Outpatient Encounter [id number] 04/21 [facility] EVALUATION OF WHEEZING [id number] Diagnos is: ICD-10- CM R05.3 Chronic cough<b r/> JACOBO FREITAS 04/21 [facility] Outpatient Encounter [id number] 12/31 [facility] Outpatient Encounter [id number] 01/07 [facility] [place] [facility] Outpatient Encounter [id number] 01/31 [facility] [place] IS [facility] OFFICE O/P EST MOD 30 MIN [id number] Diagnos is: ICD-10- CM E78.5 Hyperli pidemia , unspeci fied
Elbert JERONIMO HRISTOPHER 01/31 [facility] [place] [facility] HEARING AID REPAIR/MOD IFYING [id number] Diagnos is: ICD-10- CM H90.3 Sensori neural hearing loss, bilater al
MERON PRICE 02/09 [facility] Social History Combined list of available smoking, tobacco, and other social history from Department of Defense and Veterans Affairs facilities. Social History Type Response Date Comment Sour e Tobacco smoking status [facility] NEVER USED 02/[facility] History of tobacco use [place]-TOBAC[facility] NEVER USED 03/23/2023 [facility] History of tobacco use NC-TOBACCO NEVER USED 02/25/2022 [facility] History of tobacco use NC-TOBACCO NEVER USED 03/12/2021 [facility] This section is an empty social history section. [employer]
--- OUTSIDE RECORDS SUMMARY | 2024-03-06 10:25 | XMS_ITS | Continuity of Care Document ---
Author Organization [facility] Address [address] [address] [place] [address] Phone Care Team Providers Care Office Runner Name Role Phone Rey Ardon DO Unavailable Unavailable Allergies, Adverse Reactions, Alerts Substance Reaction Status Criticality No Known Allergies Active No Inform ation Medications Medication Instructions Dosage Effective Dates (start - stop) Status Comments amlodipine 2.5 mg tablet take 1 tablet by oral route every day 2.5 MG - Active prednisone 5 mg tablet take 1 tablet (5M G) by oral route every day as needed 5 MG - Active atorvastatin 40 mg tablet take 1 tablet by oral route every day 40 MG - Active losartan 25 mg tablet take 0.5 tablet by oral route 2 times every day 12.5 MG - Active Procedures Procedure Date Offic/outpt E&m Estab Low-mod Impedance-pH Reflux Monitor Ugi Endo; W/bx 1/mx Level Iv-surg Path Gross/micro Colonoscopy Flex; W/bx 1/mx Level Iv-surg Path Gross/micro 24 Colonoscopy Flex; W/remov Les- 13 Colonoscopy Flex; W/bx 1/mx Level Iv-surg Path Gross/micro 13 Advance Directives Directive Yes / No Effective Date File Name No Information Encounters Encounter Description Practice Location Reason(s) For Visit Diagnoses Date Provider Providers Copied on Encounter Offic/outpt E&m Estab Low-mod [facility], [address] [address], [place], [id number], [place] tel:[phone] [facility] GI Symptoms or Concerns (chief complaint) Unexplained chronic coughDysphagia, unspecified type 4 Duglas Shoemaker. [address] [facility], [place], [id number], [place]. tel:[phone] Referring Provider: Referral Self, USE FOR SELF REFERRALS. [facility], [address] [address], [place], [id number], [place] tel:[phone] [facility] Gastroesophageal reflux disease, unspecified whether esophagitis present 4 Kirk Liu. [address] [facility], [facility] [address], [place], [id number], [place]. tel:[phone] Referring Provider: Oumar Archer, Secondary Location [address], [place], [address]. tel:[phone] [facility], [address] [address], [place], [id number], [place] tel:[phone] [facility] GI Symptoms or Concerns (chief complaint) Dysphagia, unspecified typeUnexplained chronic coughGastritis without bleeding, unspecified chronicity, unspecified gastritis typeGastro-esoph ageal reflux disease with esophagitis, without bleedingGastriti s, unspecified, without bleeding 4 Duglas Shoemaker. [address] [facility], [place], [id number], [place]. tel:[phone] Referring Provider: Oumar Archer, Secondary Location [address], [place], [address]. tel:[phone] [facility], [address] [address], [place], [id number], [place] tel:[phone] No Information 4 No Information Referring Provider: Oumar Zhong MD J, Secondary Location [address] [facility] [address], [place], [address]. tel:[phone] [facility] [place], [address] [address], [place], [place], [id number], [place] tel:[phone] [facility] GI Symptoms or Concerns (chief complaint) History of adenomatous polyp of colonColorectal polyp detected on colonoscopyHemor rhoids, internalDivertic ulosis of colon without diverticulitisEn counter for screening for malignant neoplasm of colonBenign neoplasm of descending colonPersonal history of colonic polyps 4 Anderson Soriano. [address] [facility] [address], [place], [place], [id number], [place]. tel:[phone] Referring Provider: Elissa Cyr MD, [address] [place] [address], [address]. tel:[phone] [facility], [address] [address], [place], [place], [id number], [place] tel:[phone] [facility] No Information 3 Magno Rocha. [address] [facility], [facility] [address], [place], [place], [id number], [place]. tel:[phone] [facility] Dig[facility], [address] [address], [place], [place], [id number], [place] tel:[phone] [facility] Polyp-intes/rect /stom-unc BehColon Cancer ScreeningBenign Neoplasm ColonDiverticulo sis Of ColonColon Cancer ScreeningDiverti culosis Of ColonBenign Neoplasm Colon 0 3 Laine Shields. [address] [facility], [facility] [address], [place], [id number], [place]. tel:[phone] Family History Family Member Type Diagnosis Age At Onset No Information Immunizations Vaccine Date Status Comments SARS-COV-2 (COVID-19) vaccin e, mRNA, spike protein, LNP, preservative free, leonie-sucrose, 30 mcg/0.3 mL dose administered Note: [facility] bi-direct ional interface ; Source: Other Registry Influenza, adjuvanted, inactivated, trivalent, injectable, preservative free administered Note: [facility] bi-directional interface ; Source: Other Registry Influenza, adjuvanted, inactivated, quadrivalent, injectable, preservative free administered Note: [facility] bi-directional interface ; Source: Other Registry influenza, seasonal vaccine, quadrivalent, adjuvanted, 0.5mL dose, preservative free administered Note: [facility] bi-di rectional interface ; Source: Other Registry SARS-COV-2 (COVID-19) vaccin e, mRNA, spike protein, LNP, preservative free, leonie-sucrose, 30 mcg/0.3 mL dose administered Note: [facility] bi-direct ional interface ; Source: Other Registry SARS-COV-2 (COVID-19) vaccin e, mRNA, spike protein, LNP, preservative free, leonie-sucrose, 30 mcg/0.3 mL dose administered Note: [facility] bi-direct ional interface ; Source: Other Registry Prevnar administered Note: [facility] bi-d irectional interface ; Source: Other Registry Influenza, high-dose, split virus, quadrivalent, injectable, preservative free administered Note: [facility] bi-direct ional interface ; Source: Other Registry influenza, high-dose seasona l, quadrivalent, 0.7mL dose, preservative free administered Note: [facility] bi-direct ional interface ; Source: Other Registry SARS-COV-2 (COVID-19) vaccin e, mRNA, spike protein, LNP, preservative free, 30 mcg/0.3mL dose administered Note: [facility] bi-direct ional interface ; Source: Other Registry SARS-COV-2 (COVID-19) vaccin e, mRNA, spike protein, LNP, preservative free, leonie-sucrose, 30 mcg/0.3 mL dose administered Note: [facility] bi-direct ional interface ; Source: Other Registry SARS-COV-2 (COVID-19) vaccin e, mRNA, spike protein, LNP, preservative free, leonie-sucrose, 30 mcg/0.3 mL dose administered Note: [facility] bi-direct ional interface ; Source: Other Registry zoster vaccine recombinant administered N ote: [facility] bi-directional interface ; Source: Other Registry Pneumovax 23 administered Note: [facility] bi-d irectional interface ; Source: Other Registry zoster vaccine recombinant administered N ote: [facility] bi-directional interface ; Source: Other Registry Prevnar administered Note: [facility] bi-d irectional interface ; Source: Other Registry tetanus toxoid, reduced diphtheria toxoid, and acellular pertussis vaccine, adsorbed administered Note: [facility] b i-directional interface ; Source: Other Registry Prevnar administered Note: [facility] bi-d irectional interface ; Source: Other Registry Afluria Qd administered Note: [facility] bi-directional interface ; Source: Other Registry tetanus toxoid, reduced diphtheria toxoid, and acellular pertussis vaccine, adsorbed administered Note: [facility] b i-directional interface ; Source: Other Registry zoster vaccine, live administered Note: [facility] bi-directional interface ; Source: Other Registry Payers Payer name Insurance type Covered democrat ID Authorphama tileif(s) Medicare NGS MB [id number] [facility] Medicare Supplement [id number] Social History Type Description Quantity Date Captured Comments Alcohol Use Details Unknown Caffeine Use Details Unknown Tobacco Use Status No Information Smoking Status undefined Sex Male Vital Signs Date / Time: Height Weight BMI Pulse Rate Blood Pressure Temperature Respiratory Rate Body Surface Area Head Circumference Head Circ. Percentile Wt./Anuel. Percentile BMI percentile Pulse Ox Inhaled Ox 9:30 AM 73.00 in 87.543 kg (193.00 lbs) 25.4 6 kg/m eter (2) 61 /min 127/66 mm[Hg] Chief Complaint And Reason For Visit From encounter dated '02/23/2024 10:00'. GI Symptoms or Concerns (chief complaint). Description: Mr. Singleton is a 68 year old male presenting for chronic cough and intermittent dysphagia. Onset of symptoms roughly about 5 years ago. Reportsdeveloping a nonproductive cough at that time. This was previously attributed to lisinopril and wastransitioned to losartan with improvement of his cough. However, this gradually recurred. He statesthat he was previously evaluated by ENT and underwent laryngoscopy with mild findings. I do not have this report at this time. Regarding his dysphagia, he reports that 80% of the time this occurs with chicken. It occurs several times per year, often during social situations when he is not aware howfast he is eating. Has always been able to pass food into his stomach and denies any issues with liquids. He reports having a prior upper endoscopy with dilation at [facility]. Of note, he reports occasionally having residual food, such as a granola bar, in the back of his throat which he feels like he was ever swallowed in the first place.More recently, he underwent upper endoscopy on 01/25 with subtle nonerosive reactive gastropathy and reflux esophagitis seen on path. There is no appreciable stricture seen in esophageal biopsies were otherwise negative for EOE. He subsequently underwent pH impedance with AET 3.1%, [place]ter 13.2, and no clear correlation between reflux episodes and cough. He also reports intermittent wheezing and [facility] continues to report a dry cough and he believes this may be attributed to underlying environmental factors. Reason For Referral Reason For Referral No Information Plan Of Treatment Date Type Action Status Referral Ordered: referred to Otolaryngology ordered Referral Ordered: Video And Clinical Swallow With Speech Pathologist, Treatment As Indicated Appointment date/timeframe: First Available ordered Referral Ordered: follow-up visit 1 Month Appointment date/timeframe: 1 Month ordered History Of Present Illness Encounter Date Complaint History Of Prese nt Illness GI Symptoms or Concerns Mr. Mya bashir is a 68 year old male presenting for chronic cough and intermittent dysphagia. Onset of symptoms roughly about 5 years ago. Reports developing a nonproductive cough at that time. This was previously attributed to lisinopril and was transitioned to losartan with improvement of his cough. However, this gradually recurred. He states that he was previously evaluated by ENT and underwent laryngoscopy with mild findings. I do not have this report at this time. Regarding his dysphagia, he reports that 80% of the time this occurs with chicken. It occurs several times per year, often during social situations when he is not aware how fast he is eating. Has always been able to pass food into his stomach and denies any issues with liquids. He reports having a prior upper endoscopy with dilation at [facility]. Of note, he reports occasionally having residual food, such as a granola bar, in the back of his throat which he feels like he was ever swallowed in the first place.More recently, he underwent upper endoscopy on 01/25 with subtle nonerosive reactive gastropathy and reflux esophagitis seen on path. There is no appreciable stricture seen in esophageal biopsies were otherwise negative for EOE. He subsequently underwent pH impedance with AET 3.1%, [place]ter 13.2, and no clear correlation between reflux episodes and cough. He also reports intermittent wheezing and was recently [facility]. continues to report a dry cough and he believes this may be attributed to underlying environmental factors. GI Symptoms or Concerns GI Symptoms or Concerns Functional Status Date Functional Assessmen t No Information Instructions Date Instruction Additional Infor alfonzoaguilar Diverticulosis/Diverticulitis Re lated to History of adenomatous polyp of colon Colon Polyps Related to Histo ry of adenomatous polyp of colon Colon Cancer Prevention Related to History of adenomatous polyp of colon Assessments Type Assessment Date assessment Unexplained chronic cough assessment Dysphagia, unspecified type impression 68-year-old male pre senting with chronic cough and intermittent dysphagia. Recently underwent pH impedance study without evidence of pathologic reflux and recently started on famotidine. 1. Chronic cough: Previously attributed to PREMA inhibitor, however slowly recurred after transition to ARB. Reports chronic post-nasal drip which may also be contributing. 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 Recently started a trial of famotidine daily and we will continue to monitor symptoms on this. Will obtain a video swallow study as outlined below and patient was encouraged to follow-up with his ENT provider. 2. Dysphagia: Intermittent episodes occurring several times per year with last episode 2 to 3 months ago. Differential includes esophageal spasm vs oropharyngeal source and possibly exacerbated by eating behaviors. He is encouraged to chew his food thoroughly we will plan to obtain video swallow study to rule out oropharyngeal source given his chronic cough.3. Colorectal cancer screening: Reports last colonoscopy 2 years ago and was recommended to have 10 year follow up. Mental Status Date Cognitive Assessment Orientation - [place] ed to time, place, person, situation. Patient Care Teams Name Effective Dates (start - stop) Status Members No Information
--- OUTSIDE RECORDS SUMMARY | 2024-03-06 10:25 | XMS_ITS | Clinical Summary ---
Author Organization [place] Address [address] [place] [address] Care Team Providers Care Wire Inserter Name Role Phone [facility] re Provider Allergies Active Allergy Reactions Criticality Noted Date Comments Lisinopril 06/25/2020 Other reaction(s): cough Medications multivitamin, therapeutic (THERA-VIT) TABS tablet Take 1 tablet by mouth daily Active ASPIRIN PO Take 81 mg by mouth daily Active LOSARTAN POTASSIUM PO Take 25 mg by mouth daily Active ATORVASTATIN CALCIUM PO Take 40 mg by mouth daily Active oxyCODONE (ROXICODONE) 5 MG tabletIndication s:Right inguinal hernia Take 1-2 tablets (5-10 mg) by mouth every 4 hours as needed for moderate to severe pain 10 tablet 1 Active ondansetron (ZOFRAN) 4 MG tabletIndication s:Right inguinal hernia Take 1 tablet (4 mg) by mouth every 8 hours as needed for nausea 9 tablet 1 Active Active Problems Problem Noted Date Diagnosed Date Right inguinal hernia 07/02/2020 Overview (07/02/2020): Added automatically from request for surgery [id number] Primary hyperparathyroidism 09/06/2019 Overview (09/06/2019): Added automatically from request for surgery [id number] Social History Tobacco Use Types Packs/Day Years Used Date Smoking Tobacco: Never Smokeless Tobacco: Never Tobacco Cessation:Counseling Given: Yes Alcohol Use Standard Drinks/Week Comments Yes 7 (1 standard drink = 0.6 oz pur e alcohol) Occas Adolescent Education Answer Date Record ed Getting School Help Needed Not on file 01/18 Sex and Gender Information Value Date Recorded Sex Assigned at Male 06/26/2020 1:46 PM CDT 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 Gender Identity Male 06/26/2020 1:46 PM CDT Sexual Orientation Straight 06/26/2020 1: 46 PM CDT Last Filed Vital Signs Vital Sign Reading Time Taken Comments Blood Pressure 122/72 07/19/2020 2:00 PM CDT Pulse 68 07/19/2020 1:47 PM CDT Temperature 36.2 C (97.2 F) 07/19/2020 2:00 PM CDT Respiratory Rate 18 07/19/2020 2:00 PM CDT Oxygen Saturation 99% 07/19/2020 2:00 PM CDT Inhaled Oxygen Concentration - - Weight 85.9 kg (189 lb 4.8 oz) 07/19/2020 10:19 AM CDT Height 182.9 cm (6') 07/19/2020 10:19 AM CDT Body Mass Index 25.67 07/19/2020 10:19 AM CDT Plan of Treatment Not on file Medical Devices Implanted Type Area Daycare Assistant Device Identifier Shelf Expiration Date Model / Serial / Lot Mesh Ultrapro Hernia 2.4x4.7 Large Uhsl Implanted:Qty: 1 on 07/19/2020 by Markus Vargas MD at [facility] Mesh Right: Groin J 05/13/2021 UHSL / / [id number] Insurance MEDICARE [facility] MEDICARE SUPPLEMENT Advance Directives For more information, please contact: [phone] Documents on File Type Date Recorded Patient Lens Cutter Expl anation Advance Directives and Living Will 09/21/2019 8:09 AM Health Care Directiv e 09/17/2010 Healthcare Agents on File Name Relationship Healthcare Agent Relationship Communication Sondra Singleton Spouse Health Care Agent Jodi Singleton Daughter First Alternate Health Care Agent James Singleton Son Second Alternate Health Care Agent Care Teams Wire Inserter Relationship Specialty Start Date End Date Clinic - [facility] [address] [place] [address] PCP - General 07/19/20
--- OUTSIDE RECORDS SUMMARY | 2024-03-06 10:25 | XMS_ITS | Referral Summary ---
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 Gender Identity Male 06/26/2020 1:46 PM CDT [...] on file Medical Devices Implanted Type Area Blooming Mill Supervisor Device Identifier Shelf Expiration Date Model / Serial / Lot Mesh Ultrapro Hernia 2.4x4.7 Large Uhsl Implanted:Qty: 1 on 07/19/2020 by Markus Vargas MD at [facility] Mesh Right: Groin J 05/13/2021 UHSL / / [id number] Insurance MEDICARE [facility] MEDICARE SUPPLEMENT Advance Directives For more information, please contact: [phone] Documents on File Type Date Recorded Patient Threading Machine Feeder Automatic Expl anation Advance Directives and Living Will 09/21/2019 8:09 AM Health Care Directiv e 09/17/2010 Healthcare Agents on File Name Relationship Healthcare Agent Relationship Communication Sondra Singleton Spouse Health Care Agent Jodi Singleton Daughter First Alternate Health Care Agent James Singleton Son Second Alternate Health Care Agent Care Teams Hot Blaster Relationship Specialty Start Date End Date Clinic - [facility] [address] [place] [address] PCP - General 07/19/20
--- OUTSIDE RECORDS SUMMARY | 2024-03-06 10:25 | XMS_ITS | Clinical Summary ---
Author Organization [facility] Address [place], [place] [address] Care Team Providers Care Lastex Operator Name Role Phone Kulwinder Villafana MD Primary Care Provider [phone] Allergies No known active allergies Medications Medication Sig Dispensed Refills Start Date End Date Status simvastatin (ZOCOR) 20 mg tablet Take 1 tablet by mouth at bedtime. 0 01/26/2014 Active lisinopril (PRINIVIL; ZESTRIL) 10 mg tablet Take 1 tablet by mouth once daily. 0 01/26/2014 Active Active Problems Problem Noted Date Diagnosed Date Abnormal screening CT of heart 01/26/2014 Overview (01/26/2014): Coronary Calcium Score 95th percentile Normal Nuclear stress tests Family History * Patient is adopted Relation Name Status Comments Daughter Alive Public Health Son Alive Social History Tobacco Use Types Packs/Day Years Used Date Smoking Tobacco: Never Smokeless Tobacco: Never Alcohol Use Standard Drinks/Week Comments Yes 0 (1 standard drink = 0.6 oz pur e alcohol) Sex and Gender Information Value Date Recorded Sex Assigned at Not on file Gender Identity Not on file Sexual Orientation Not on file Obstetrics History Last Filed Vital Signs Vital Sign Reading Time Taken Comments Blood Pressure 112/74 01/26/2014 11:08 AM CDT Pulse - - Temperature 36.6 C (97.9 F) 01/26/2014 11:08 AM CDT Respiratory Rate - - Oxygen Saturation - - Inhaled Oxygen Concentration - - Weight 95.8 kg (211 lb 3.2 oz) 01/26/2014 11:08 AM CDT Height - - Body Mass Index - - Plan of Treatment Health Maintenance Due Date Last Done Comments Tdap 1964 Depression screening for age 12+ 1965 BMI (ht and wt on same day) for age 18+ 08/04/1971 Hepatitis C screening for age 18-79 08/04/1971 Tetanus booster 1973 Colonoscopy through age 75 1998 Lipids for age 45-75 1998 Zoster (shingles) series for age 50+ (1 of 2) 08/04/19 04 Pneumococcal series for age 65+ (1 of 1 - PCV) 019 COVID-19 vaccine series ( - 2023- season) 4 Influenza for age 65+ 12/13/2023 Care Teams Lastex Operator Relationship Specialty Start Date End Date Kulwinder Villafana MD PCP - General 03/21/08
--- OUTSIDE RECORDS SUMMARY | 2024-03-06 10:25 | XMS_ITS | Clinical Summary ---
Author Organization [facility] Address [address] [place] [address] Care Team Providers Care Exercise Physiology Professor Name Role Phone Aster Alvarado MD Primary Care Provider [phone] Source Comments You are receiving this document as you are listed as the primary care provider,follow-up provider, or the patient has been referred to you for consultation.This is in compliance with the Medicare and[facility] Systemcaid EHR Incentive Program,which states Providers who transition their patient to another setting of careor provider of care or refers their patient to another provider of care shouldprovide summary care record for each transition of care or referral. [facility] Allergies No known active allergies Medications No known medications Social History Tobacco Use Types Packs/Day Years Used Date Smoking Tobacco: Never Assessed Sex and Gender Information Value Date Recorded Sex Assigned at Not on file Gender Identity Not on file Sexual Orientation Not on file Last Filed Vital Signs Vital Sign Reading Time Taken Comments Blood Pressure - - Pulse - - Temperature 36.7 C (98 F) 11/09/2021 2:43 PM CDT Respiratory Rate - - Oxygen Saturation - - Inhaled Oxygen Concentration - - Weight 88.5 kg (195 lb) 11/09/2021 2:43 PM CDT Height 185.4 cm (6' 1) 11/09/2021 2:43 PM CDT Body Mass Index 25.73 11/09/2021 2:43 PM CDT Plan of Treatment Health Maintenance Due Date Last Done Comments Colon Cancer Screening Plan Due 1955 Hep C Screening (Preventive Services) 1955 Adult Preventive Visit 08/04/1971 Cholesterol 1988 Zoster/Shingles (2 of 3) 10/15/2015 08/20/2015 Pneumococcal 65+ Yrs (2 - PPSV23 or PCV20) 06/26/2022 06/26/2021, 10/04/2019 COVID-19 Vaccine (2 - 2023-2 5 season) 2023 01/08/2021 Influenza (#1) 2023 01/08/2021, 01/11/2018 DTaP/Tdap/Td (2 - Tdap) 08/19/2025 08/20/2015 RSV (1 - 1-dose 75+ series) 2028 HepA Aged Out No longer eligi ble based on patient's age to complete this topic HepB Aged Out No longer eligi ble based on patient's age to complete this topic Hib Aged Out No longer eligi ble based on patient's age to complete this topic IPV (Polio) Aged Out No longer eligi ble based on patient's age to complete this topic Infant RSV Aged Out No longer eligi ble based on patient's age to complete this topic MCV4 Aged Out No longer eligi ble based on patient's age to complete this topic Care Teams Exercise Physiology Professor Relationship Specialty Start Date End Date Aster Alvarado MD [address] [place] [address] PCP - General Family Practice 07/21/16
--- OUTSIDE RECORDS SUMMARY | 2024-03-06 10:25 | XMS_ITS | Encounter Summary ---
Author Organization [place] Address [facility] [place] [address] Care Team Providers Care Stranner Name Role Phone Aster Alvarado MD Primary Care Provider Anastasiya Viera MD Unavailable Markus Vargas MD Unavailable [phone] [facility] Primary Ca re Provider Encounter Details Date Type Department Care Team (Late st Contact Info) Description 06/25/2020 [facility] Medical Advice [facility] [place] [address] [facility] [address] [place] [address] Anastasiya Viera MD [address] [facility] [address] [place] [address] Social History Tobacco Use Types Packs/Day Years Used Date Smoking Tobacco: Never Smokeless Tobacco: Never Alcohol Use Standard Drinks/Week Comments Yes 7 (1 standard drink = 0.6 oz pur e alcohol) Occas Sex and Gender Information Value Date Recorded Sex Assigned at Male 06/26/2020 1:46 PM CDT Legal Sex Male 3:19 AM [employer] Gender Identity Male 06/26/2020 1:46 PM CDT Sexual Orientation Straight 06/26/2020 1: 46 PM CDT documented as of this encounter Plan of Treatment Not on file documented as of this encounter Visit Diagnoses Not on filedocumented in this encounter Care Teams Stranner Relationship Specialty Start Date End Date Aster Alvarado MD [facility] [address] [place] [address] PCP - General 10/21/17 07/18/20 [facility] [address] [place] [address] PCP - General 07/19/20 Anastasiya Viera MD [address] [facility] [address] [place] [address] Assigned Surgical Provider 02/03/20 Markus Vargas MD [address] [facility] [address] [place] [address] Assigned Surgical Provider 07/08/20 documented as of this encounter
--- OUTSIDE RECORDS SUMMARY | 2024-03-06 10:25 | XMS_ITS | Continuity of Care Document ---
Author Organization [facility] Address [address] [place] [address] Phone Care Team Providers Care Director Of Instruction Name Role Phone No Information Unavailable Unavailable Procedures Procedure Date Office/outpatient visit,est, mod 2006 Office/outpatient visit,new, mod 2006 X-ray exam lwr spine, min 4 views Advance Directives Directive Yes / No Effective Date File Name No Information Encounters Encounter Description Practice Location Reason(s) For Visit Diagnoses Date Provider Providers Copied on Encounter [facility], [address] [place] [address], [facility], tel:[phone] No Information 7 No Information Office/outpat ient visit,est, mod [facility], [address] [place] [address], [facility], [place] tel:[phone] [facility] No Information [address] [facility], [address], [address], [id number], . tel:[phone] Office/outpat ient visit,new, mod [facility], [address] [place] [address], [facility], [place] tel:[phone] [facility] No Information [address] [facility], [address] [place] [address], [address] [place] [address], [id number], [place]. tel:[phone] Family History Family Member Type Diagnosis Age At Onset No Information Payers Payer name Insurance type Covered green party ID Authoriza tileif(s) [facility] [id number] Social History Type Description Quantity Date Captured Comments Sex Male Smoking Status No Information Chief Complaint And Reason For Visit No Information Reason For Referral Reason For Referral No Information History Of Present Illness Encounter Date Complaint History Of Prese nt Illness No Information Functional Status Date Functional Assessmen t No Information Instructions Date Instruction Additional Infor mation No Information Assessments Type Assessment Date No Information Patient Care Teams Name Effective Dates (start - stop) Status Members No Information
== END 2024-03-03 09:27 | disposition home or self-care (01) ==
LOC: NFLDREF 03-06 10:22
PROVIDERS: PCP Emergency Medicine; Referring Provider Emergency Medicine; Visit Provider Emergency Medicine
DX: E78.5 Hyperlipidemia, unspecified (principal); E21.0 Primary hyperparathyroidism; E78.2 Mixed hyperlipidemia; Z12.5 Encounter for screening for malignant neoplasm of prostate
CPT/HCPCS: 80053; 80061; 82397; G0103

== ENCOUNTER 2024-04-01 13:14 | Outpatient (CLI) | payer MEDICARE, BC, SELFPAY | END 2024-04-01 13:15 | disposition home or self-care (01) | LOC: NFLDREF 04-02 00:57 | PROVIDERS: PCP Emergency Medicine; Referring Provider Emergency Medicine; Visit Provider Emergency Medicine | DX: E21.0 Primary hyperparathyroidism (principal); R17 Unspecified jaundice | CPT/HCPCS: 80076; 83970 ==

== ENCOUNTER 2025-03-03 11:50 | Outpatient (CLI) | payer MEDICARE, BC, SELFPAY | END 2025-03-03 11:51 | disposition home or self-care (01) | LOC: FRMREF 11:52 | PROVIDERS: Visit Provider Nurse Practitioner Family | DX: R06.02 Shortness of breath (principal) | CPT/HCPCS: 85379 ==